=== PATIENT | female | born 1990 | race American Indian/Alaskan Native ===

== ENCOUNTER 2020-12-05 16:22 | Outpatient (CLI) | payer MEDICAID ==
[2020-12-05 16:57] VITALS: BP 115/66
[2020-12-05] MEDS ORDERED: LACTATED RINGERS 1,000 ML IV SCH (17:00)
[2020-12-05 17:16] LABS: Bilirubin,Urine NEG (Negative); Blood,Urine MOD (Negative); Color,Urine Yellow (Yellow); Mucus,Urine FEW /HPF; Protein,Urine <15 mg/dL mg/dL (Negative)
--- NOTE | 2020-12-05 18:14 | Ultrasound Report ---
ULTRASOUND OBSTETRIC INDICATION / CLINICAL INFORMATION: 31.3 WEEKS GESTATION, AND PIH.. Clinical Gestational Age (GA): TECHNIQUE: Transabdominal. COMPARISON: None available. FINDINGS: There is a single intrauterine . Biparietal Diameter = 7.8 cm = 31 weeks, 2 day(s). Head Circumference = 28.6 cm = 31 weeks, 3 day(s). Abdominal Circumference = 27.2 cm = 31 weeks, 2 day(s). Femur Length = 6.1 cm = 31 weeks, 5 day(s). Average Ultrasound Age (AUA) = 31 weeks, 3 day(s). Heart Rate: 155 beats per minute. Estimated Weight in grams (if calculated): 17 65 g Estimated Weight Growth Percentile (if calculated): 38% Position: cephalic. Amniotic Fluid Volume: normal Amniotic Fluid Index (FELISA) in cm (if calculated): 12.3. Maternal Adnexa: No significant abnormality. IMPRESSION: 1. Single, living intrauterine with estimated sonographic age of 31 weeks, 3 day(s). 2. No significant sonographic abnormality. Signer Name: Payam Schaefer MD Signed: 12/05/2020 6:10 PM Workstation Name: [id number]
== END 2020-12-05 19:13 | disposition home or self-care (01) ==
LOC: APU 16:22 → TRG 16:22
DX: O62.9 Abnormality of forces of labor, unspecified (principal); Z3A.31 31 weeks gestation of pregnancy; Z87.891 Personal history of nicotine dependence
CPT/HCPCS: 59025; 76816; 81001; 96360; 96361; J7120

== ENCOUNTER 2020-12-09 20:52 | Outpatient (CLI) | payer MEDICAID ==
[2020-12-09 21:22] VITALS: BP 117/56
[2020-12-09] MEDS ORDERED: LACTATED RINGERS 500 ML IV ONE (21:42)
[2020-12-09 22:41] LABS: Bilirubin,Urine NEG (Negative); Blood,Urine MOD (Negative); Color,Urine Straw (Yellow); Mucus,Urine FEW /HPF; Protein,Urine <15 mg/dL mg/dL (Negative); Urobilinogen,Urine < 2.0 mg/dL (<2.0)
== END 2020-12-09 23:22 | disposition home or self-care (01) ==
LOC: TRG 20:52 → APU 21:00 → TRG 23:22
PROVIDERS: ATTEND Obstetrics & Gynecology
DX: O46.8X3 Other antepartum hemorrhage, third trimester (principal); Z3A.32 32 weeks gestation of pregnancy
CPT/HCPCS: 59025; 81001

== ENCOUNTER 2021-01-28 09:23 | Inpatient (IN) | payer MEDICAID ==
--- NOTE | 2021-01-22 09:58 | History and Physical Report ---
History of Present Illness Date of examination: 01/28/21 History of present illness: 30 yo with EDC of 02/03/21 with h/o x 3 will present on 01/28/21 for a RLTCS. Pt with a h/o a child with hydrocephalus in the past but normal imaging this preg. GBS neg. Rub nonimm. Issues with non compliance during the . No other significant issues during the . Past History Past Medical History: other (anemia) Past Surgical History: section (x 3) PAYER SPECIALIST History: trichomonas Social history: smoking (former) - Obstetrical History : 4 Para: 3 Number of Living Children: 3 Medications and Allergies Allergies Allergy/AdvReac Type Severity Reaction Status Date / Time No Known Allergies Allergy Verified 01/28/21 10:50 Home Medications Medication Instructions Recorded Confirmed Last Taken Type One Daily Tablet 1 tab PO DAILY 01/28/21 01/28/21 1 Day Ago History ~01/27/21 Active Meds: see EMR charting Review of Systems All systems: negative (except HPI) - Physical Exam Cardiovascular: Regular rate, No murmurs Lungs: Positive: Clear to auscultation, Normal air movement Abdomen: Positive: normal appearance, soft, other (she appears to have 3 separate scars). Negative: tenderness Results Result Diagrams: 01/28/21 10:20 All other labs normal. Assessment and Plan - Patient Problems (1) Previous section Current Visit: No Status: Acute Plan to address problem: PT with EDC of 02/03 will present on 01/28 for her RLTCS. PT fully counseled including risk of C-Hys. PT understands and accepts that. Patient fully consented for the surgery. Risks, benefits, and alternatives were all discussed with the patient including risk of bleeding, infection, and potential for injury. Patient understands and accepts these risks. Patient agrees to proceed with surgery. All questions were answered.
[2021-01-28] MEDS ORDERED: ceFAZolin/Water 2 GM/20 ML 2 GM/20 ML SYRINGE IV ONE (10:07)
[2021-01-28] MEDS ORDERED: OXYTOCIN DRIP 30,000 MILLIUNITS/500 ML BAG IV ONE (10:08)
[2021-01-28] MEDS ORDERED: LACTATED RINGERS 1,000 ML ONE ×2 (10:08→14:28)
[2021-01-28] MEDS ORDERED: BICITRA ORAL LIQD 30ML PO ONE (11:00)
[2021-01-28] MEDS ORDERED: ceFAZolin/Water 2 GM/20 ML 2 GM/20 ML SYRINGE IV NR (11:00)
[2021-01-28] MEDS ORDERED: OXYTOCIN DRIP 30 UNITS/500 ML BAG IV SCH ×2 (11:00→14:00)
[2021-01-28] MEDS ORDERED: METOCLOPRAMIDE 10 MG/2 ML INJ IV NR (11:00)
[2021-01-28] MEDS ORDERED: LACTATED RINGERS 1,000 ML IV ONE (11:00)
[2021-01-28] MEDS ORDERED: FAMOTIDINE 20 MG/2 ML INJ IV NR (11:00)
[2021-01-28] MEDS ORDERED: ceFAZolin/STERILE WATER 2 GM/20 ML SYRINGE IV NR (11:00)
[2021-01-28 11:05] LABS: Hematocrit 30.3 % (30.3-42.9); Hemoglobin 10.1 gm/dl (10.1-14.3); Mean Corpuscular HGB Conc 33 % (30-34); Mean Corpuscular Volume 80 fl (79-97); Platelet Count 291 K/mm3 (140-440); Red Blood Count 3.81 M/mm3 (3.65-5.03); Red Cell Distribution Width 14.7 % (13.2-15.2)
--- NOTE | 2021-01-28 11:30 | Anesthesia Consultation ---
Anesthesia Consult and Med Hx Date of service: 01/28/21 - Airway Anesthetic Teeth Evaluation: Good ROM Head & Neck: Adequate Mental/Hyoid Distance: Adequate Mallampati Class: Class II Intubation Access Assessment: Probably Good - Pulmonary Exam CTA: Yes - Cardiac Exam Cardiac Exam: RRR - Pre-Operative Health Status ASA Pre-Surgery Classification: ASA2 Proposed Anesthetic Plan: Spinal - Pulmonary Hx Asthma: No COPD: No Hx Pneumonia: No - Cardiovascular System Hx Hypertension: No - Central Nervous System Hx Seizures: No (as a child) Hx Psychiatric Problems: No - Endocrine Hx Renal Disease: No Hx End Stage Renal Disease: No Hx Hypothyroidism: No Hx Hyperthyroidism: No - Hematic Hx Anemia: Yes Hx Sickle Cell Disease: No - Other Systems Hx Obesity: Yes
--- NOTE | 2021-01-28 11:30 | Anesthesia Day of Surgery ---
Anesthesia Day of Surgery - Day of Surgery Patient Examined: Yes Patient H&P Reviewed: Yes Patient is NPO: Yes
[2021-01-28] MEDS ORDERED: ceFAZolin/STERILE WATER 2 GM/20 ML SYRINGE IV ONE (11:32)
[2021-01-28] MEDS ORDERED: SODIUM CHLORIDE 0.9% IRR 1,500 ML BOTTLE IR ONE (12:10)
[2021-01-28] MEDS ORDERED: WATER FOR IRRIG STERILE 1,500 ML BOTTLE IR ONE (12:10)
[2021-01-28] MEDS ORDERED: KETOROLAC 30 MG/1 ML INJ ONE (12:57)
[2021-01-28] MEDS ORDERED: BUPIVACAINE/PF (0.5%) 5 MG/1 ML 30 ML VIAL INFILTRATI ONE (12:57)
[2021-01-28] MEDS ORDERED: PHENYLEPHRINE 10 MG/1 ML INJ SDV ONE (12:57)
[2021-01-28] MEDS ORDERED: ONDANSETRON 4 MG/2 ML INJ ONE (12:57)
[2021-01-28] MEDS ORDERED: SODIUM CHLORIDE 0.9% 100 ML ONE (12:58)
[2021-01-28] MEDS ORDERED: dexAMETHasone 20 MG/5 ML VIAL ONE (12:58)
--- NOTE | 2021-01-28 13:33 | Progress Note ---
Spinal Anesthesia Block - Spinal Anesthesia Block Start Time: 11:35 Stop Time: 11:45 Performed by:: VESNA BARRERA Procedure: Sitting, sterile chlorahexadine 0.5% prep/drape, 1% lidocaine skin local, 25G spinal needle + introducer at L3-4, + CSF, - Heme, [1.9 ml 0.5% bupivacaine + 10 mcg dexmedetomidine] injected, drape removed, patient positioned supine with left uterine displacement, and spinal level verified to be adequate prior to surgery. Tyson MEJIA
--- NOTE | 2021-01-28 13:34 | Progress Note ---
Labor Epidural - Labor Epidural Start Time: 13:25 Stop Time: 13:35 Performed by:: VESNA BARRERA Procedure: U/S guided bilateral tap block performed for post-operative pain requested by Dr. Ruiz. H&P & labs reviewed. Procedure explained, questions answered, consent obtained. Patient in the supine position with ekg, blood pressure cuff and pulse ox on and working in PACU. Timeout performed immediately before start of procedure. Probe placed in the mid-axillary line and the external oblique, internal oblique, and transverse abdominus muscles identified. Skin was cleansed with chlorahexadine 0.5% and allowed to dry. A 4" 20 G Shen echogenic needle was advanced in plane until the tip was in the fascial plane between the internal oblique and the transverse abdominus. After negative aspiration 35 ml/side of [30 ml 0.5% Bupivacaine], [10 mg dexamethasone], and [40 ml sterile saline] was injected in 5 ml increments with negative aspiration in between. Patient tolerated procedure well. Tyson MEJIA
--- NOTE | 2021-01-28 13:45 | Procedure Note ---
OB Delivery Note - Delivery Date of Delivery: 01/28/21 Surgeon: AISHA TENORIO Estimated blood loss: other (458 cc) - Section Preop diagnosis: repeat Postop diagnosis: same section procedure: section Disposition: PACU Complications: none Narrative: Indication: 30-year-old -0-0-3 at 39 weeks and 1 day with a history of 3 prior C-sections is here for her scheduled repeat low-transverse Findings: Normal uterus, tubes and ovaries. Clear fluid. No nuchal cord. Moderate subcutaneous tissue scarring. No significant intra-abdominal scarring. Procedure: Patient taken to the operating room and prepped and draped in the usual fashion. Patient had 3 separate scars from her 3 prior C-sections. Patient agreed to having these scars removed resulting in 1 scar. Her 3 Pfannenstiel scars from her prior C-sections were excised. Pfannenstiel skin incision was made and carried down to the underlying fascia. Fascia was incised and the incision was extended bilaterally. Rectus fascia dissected off the rectus muscle both superiorly and inferiorly. Peritoneum identified tented up and entered. Peritoneal incision extended superiorly and inferiorly with good visualization of the bladder. Bladder blade was placed. Uterine incision was made and the incision was extended bilaterally. The baby was delivered in the typical vertex fashion. Baby bulb suctioned at the incision site and again after delivery. Cord was delayed clamped and cut and handed off to waiting team. The placenta was delivered spontaneously. The uterus was exteriorized and cleared of all clots and debris. Uterine incision closed with 0 Vicryl in a running locked fashion followed by a second imbricating layer of 0 Vicryl. Good hemostasis was noted. Her urine was clear. Uterus tubes and ovaries were returned to the abdominal cavity. Gutters were cleared of all clots and debris. Good hemostasis noted. Interceed placed over the uterine incision and over the lower uterine segment in the midline. Attention was turned to the rectus fascia which was reapproximated with 0 Vicryl in a running fashion. Subcutaneous tissue was irrigated and reapproximated with 2-0 Vicryl in a running fashion x2 layers. Skin was closed with 4-0 Vicryl in a subcuticular fashion followed by Dermabond. The procedure was concluded at this point and the patient tolerated the procedure well. All instrument and lap counts were correct. - A at 1 minute: 8 at 5 minutes: 9 Infant Gender: Male
[2021-01-28] MEDS ORDERED: WITCH HAZEL/ GLYCERIN PAD TP PRN (13:48)
[2021-01-28] MEDS ORDERED: NALOXONE 0.4 MG/1 ML INJ IV PRN (13:48)
[2021-01-28] MEDS ORDERED: LANOLIN/ZINC/DIMETHICONE (LANSINOH) 7 GM TP PRN (13:48)
[2021-01-28] MEDS ORDERED: KETOROLAC 30 MG/1 ML INJ IV PRN (13:48)
[2021-01-28] MEDS ORDERED: SENNOSIDES 8.6 MG TAB PO PRN (13:49)
[2021-01-28] MEDS ORDERED: ONDANSETRON 4 MG/2 ML INJ IV PRN (13:49)
[2021-01-28] MEDS: SIMETHICONE 80 MG CHEW TAB PO PRN (18:41)
[2021-01-28] MEDS: MAGNESIUM HYDROXIDE (MOM) ORAL LIQD UDC PO PRN (21:31)
[2021-01-28] MEDS ORDERED: D5W/LACTATED RINGERS 1,000 ML IV SCH (22:00)
[2021-01-29] MEDS: SIMETHICONE 80 MG CHEW TAB PO PRN (02:57)
[2021-01-29] MEDS: oxyCODONE /ACETAMINOPHEN 5-325MG TAB PO PRN ×3 (04:06→18:11)
[2021-01-29 07:32] LABS: Hematocrit 29.3 % (30.3-42.9); Hemoglobin 9.6 gm/dl (10.1-14.3)
[2021-01-29] MEDS: IBUPROFEN 800 MG TAB PO PRN ×3 (08:29→23:46)
[2021-01-29] MEDS: MAGNESIUM HYDROXIDE (MOM) ORAL LIQD UDC PO PRN (10:09)
--- NOTE | 2021-01-29 10:42 | Progress Note ---
Assessment and Plan A: POD #1 Asymptomatic Anemia P: Follow Routine PostOp Orders Encouraged to increase dietary iron Increased Ambulation Subjective - Subjective Date of service: 01/29/21 Patient reports: appetite normal, voiding normally, pain well controlled, ambulating normally : doing well, bottle feeding Objective - Vital Signs Latest vital signs: Vital Signs Temp Pulse Resp BP BP Pulse Ox 01/29/21 08:36 97.9 F 69 20 136/84 100 01/29/21 05:51 98.2 F 81 20 129/81 98 01/29/21 04:06 20 01/29/21 01:29 98.2 F 69 20 120/68 100 01/28/21 21:23 98.2 F 76 20 134/82 96 01/28/21 20:13 20 01/28/21 15:35 97.5 F L 63 18 128/75 01/28/21 14:50 54 L 11 L 118/75 95 01/28/21 14:40 55 L 10 L 109/63 100 01/28/21 14:25 56 L 12 112/74 100 01/28/21 14:12 97.5 F L 51 L 12 107/51 100 01/28/21 13:55 97.4 F L 54 L 13 105/54 100 01/28/21 13:40 97.4 F L 61 14 106/79 100 01/28/21 13:25 58 L 14 100/55 100 01/28/21 13:20 61 12 108/62 100 01/28/21 13:14 97.4 F L 62 16 101/50 99 01/28/21 11:19 84 99 01/28/21 11:14 85 98 01/28/21 11:09 79 99 01/28/21 11:05 96 H 94 01/28/21 11:04 88 97 01/28/21 10:59 74 98 01/28/21 10:54 74 98 01/28/21 10:49 79 100 01/28/21 10:44 71 98 Intake and Output 01/28/21 01/29/21 01/29/21 22:59 06:59 14:59 Intake Total 240 120 Output Total 1300 1100 Balance -1060 -1100 120 Intake: Oral 240 120 Output: Urine 1300 1100 Indwelling Catheter 1300 800 Void 300 Other: Total, Intake Amount 240 120 Total, Output Amount 900 300 # Voids Void 1 1 - Exam Breasts: Present: normal Cardiovascular: Present: Regular rate Lungs: Present: Clear to auscultation, Normal air movement Abdomen: Present: normal appearance, soft, normal bowel sounds Uterus: Present: normal, firm, fundal height below umbilicus Extremities: Present: normal Incision: Present: normal, dry, intact - Labs Labs: Abnormal lab results 01/28/21 01/29/21 Range/Units 10:20 07:00 Hgb 9.6 L (10.1-14.3) gm/dl Hct 29.3 L (30.3-42.9) % MCH 27 L (28-32) pg
--- NOTE | 2021-01-29 14:24 | Post Anesthesia Evaluation ---
- Post Anesthesia Evaluation Patient Participated: Yes Airway Patent: Yes Stable Respiratory Function: Yes Nausea/Vomiting: No Temp > 96.8F: Yes Pain Manageable: Yes Adequeate Hydration: Yes Anesthesia Complications: No Block Receding Appropriately: Yes
[2021-01-30] MEDS: oxyCODONE /ACETAMINOPHEN 5-325MG TAB PO PRN (04:55)
[2021-01-30] MEDS ORDERED: TETANUS,DIPH,PERTUSS(ACELL) VACCINE 0.5 ML SYRINGE IM ONE (06:00)
[2021-01-30] MEDS: MAGNESIUM HYDROXIDE (MOM) ORAL LIQD UDC PO PRN (08:38)
[2021-01-30] MEDS ORDERED: MEASLES, MUMPS & RUBELLA 12,500 UNIT/0.5 ML VACCINE SUB-Q ONE (09:00)
--- NOTE | 2021-01-30 09:17 | Progress Note ---
Assessment and Plan PPD # 2 A: S/P Repeat LTCS No gas yet Asymptomatic anemia P: Continue routine pp care Advised foods high in Fe Continue Fe as prescribed Encourage ambulation May d/c home once gas is passed Subjective - Subjective Date of service: 01/30/21 Principal diagnosis: s/p Repeat LTCS Patient reports: appetite normal, voiding normally, pain well controlled, ambulating normally, other (NO GAS YET) [place]: doing well, bottle feeding Objective - Vital Signs Latest vital signs: Vital Signs Temp Pulse Resp BP BP Pulse Ox 01/30/21 08:06 97.5 F L 66 18 102/54 97 01/30/21 04:55 20 01/30/21 01:55 98.0 F 54 L 20 114/66 99 01/29/21 23:46 20 01/29/21 15:49 97.9 F 71 18 119/83 98 Intake and Output 01/29/21 01/30/21 01/30/21 22:59 06:59 14:59 Intake Total 360 Balance 360 Intake: Oral 360 Other: Total, Intake Amount 240 # Voids Indwelling Catheter 1 Void 1 # Bowel Movements 1 - Exam Breasts: Present: normal Abdomen: Present: normal appearance, soft, normal bowel sounds Vulva: both: normal Uterus: Present: normal, firm, fundal height below umbilicus Extremities: Present: normal Incision: Present: normal, dry, intact, dressed
--- NOTE | 2021-01-30 10:45 | Event Note ---
Date: 01/30/21 Operations Staff Specialist Security received call from nurse stating that pt was passing gas and requesting to go home. Pt was d/c'd home in stable condition.
--- NOTE | 2021-01-30 10:49 | Discharge Summary ---
Providers - Providers Date of Admission: 01/28/21 09:23 Date of discharge: 01/30/21 Attending physician: AISHA TENORIO Primary care physician: ELIU JOHNSON Hospitalization Reason for admission: section Delivery: Procedure: repeat low transverse Episiotomy: none Laceration: none Incision: normal, dry, intact Other procedures: none complications: none Discharge diagnosis: IUP at term delivered baby: male Hospital course: Pt had a repeat LTCS w/o pp complications. She was d/c'd home in stable condition. See h&p, delivery summary, and pp notes. Condition at discharge: Stable Disposition: TO HOME OR SELFCARE Plan - Discharge Medications Prescriptions: Ibuprofen [Motrin 800 MG tab] 800 mg PO Q6H PRN #30 tablet PRN Reason: Pain, Moderate (4-6) oxyCODONE /ACETAMINOPHEN [Percocet 5/325 mg] 1 tab PO Q6H PRN #30 tablet PRN Reason: Pain, Moderate (4-6) - Provider Discharge Summary Activity: routine, no sex for 6 weeks, no heavy lifting 4 weeks, no strenuous exercise Diet: routine Instructions: routine Additional instructions: [] Smoking cessation referral if applicable(refer to patient education folder for contact #) [] Refer to [facility]'s [facility] Booklet Call your doctor immediately for: * Fever > 100.5 * Heavy vaginal bleeding ( >1 pad per hour) * Severe persistent headache * Shortness of breath * Reddened, hot, painful area to leg or breast * Drainage or odor from incision. * Keep incision clean and dry at all times and follow doctor's instructions regarding bathing/showering - Follow up plan Follow up: AISHA TENORIO MD [Staff Physician] - 14 Days Forms: [facility] Discharge Summary
[2021-01-30 11:37] VITALS: BP 115/73
== END 2021-01-30 12:05 | disposition home or self-care (01) | DRG 766 ==
LOC: APU 09:23 → OB 15:15
PROVIDERS: ADMIT Obstetrics & Gynecology; ATTEND Obstetrics & Gynecology
PROC: 10D00Z1 Extraction of Products of Conception, Low, Open Approach (ICD-10-PCS; principal; 2021-01-28)
PROC: 3E0134Z Introduction of Serum, Toxoid and Vaccine into Subcutaneous Tissue, Percutaneous Approach (ICD-10-PCS; 2021-01-30)
PROC: 3E0234Z Introduction of Serum, Toxoid and Vaccine into Muscle, Percutaneous Approach (ICD-10-PCS; 2021-01-30)
DX: O34.211 Maternal care for low transverse scar from previous cesarean delivery (principal); O99.02 Anemia complicating childbirth; Z20.822 Contact with and (suspected) exposure to COVID-19; Z3A.39 39 weeks gestation of pregnancy; Z37.0 Single live birth; Z23 Encounter for immunization; Z87.891 Personal history of nicotine dependence; D64.9 Anemia, unspecified
CPT/HCPCS: 36415; 85014; 85018; 85027; 86592; 86850; 86900; 86901; 90471; 90707; 90715; 99211; G0378; C1765; G0463; J0690; J1100; J1885; J2370; J2405; J2765; J3490; J7120; J7121; U0003